=== PATIENT | male | born 1955 | race Caucasian/White ===

== ENCOUNTER → 2020-10-03 | Outpatient (CLI) | payer OTHER ==
[2020-10-03 11:14] LABS: HEMOGLOBIN 15.8 gm/dl (14.0-17.5); RED BLOOD COUNT 5.03 M/UL (4.20-5.50); WHITE BLOOD COUNT 8.1 K/UL (4.5-11.0)
[2020-10-05 17:17] LABS: CHOLESTEROL, TOTAL 116 mg/dL (100-199); HDL-C 38 mg/dL (>39); HDL-P (TOTAL) 29.8 umol/L (>=30.5); LARGE HDL-P 3.5 umol/L (>=4.8); LARGE VLDL-P 2.4 nmol/L (<=2.7); LDL SIZE 20.7 nm (>20.5); LDL SIZE 20.7 nm (>=20.8); LDL-C 62 mg/dL (0-99); LDL-P 806 nmol/L (<1000); LP-IR SCORE 53 (<=45); SMALL LDL-P 415 nmol/L (<=527); TRIGLYCERIDES 77 mg/dL (0-149); VLDL SIZE 46.6 nm (<=46.6)
== END ==
LOC: LAB 10:40
PROVIDERS: Emergency Medicine
DX: I10 Essential (primary) hypertension (principal); R35.1 Nocturia; I25.10 Atherosclerotic heart disease of native coronary artery without angina pectoris; E78.2 Mixed hyperlipidemia; Z12.5 Encounter for screening for malignant neoplasm of prostate
CPT/HCPCS: 36415; 80053; 80061; 83704; 84153; 84550; 85025

== ENCOUNTER → 2021-08-11 | Outpatient (CLI) | payer MEDICARE, OTHER ==
[2021-08-11 14:56] LABS: HEMOGLOBIN 14.8 gm/dl (14.0-17.5); RED BLOOD COUNT 4.95 M/UL (4.20-5.50); WHITE BLOOD COUNT 8.3 K/UL (4.5-11.0)
[2021-08-11 15:28] LABS: BUN/CREATININE RATIO 9 (0-10)
[2021-08-14 14:12] LABS: CHOLESTEROL, TOTAL 117 mg/dL (100-199); HDL SIZE 8.9 nm (>=9.2); HDL-C 38 mg/dL (>39); HDL-P (TOTAL) 24.9 umol/L (>=30.5); LARGE HDL-P 3.4 umol/L (>=4.8); LARGE VLDL-P 1.1 nmol/L (<=2.7); LDL SIZE 20.5 nm (>20.5); LDL SIZE 20.5 nm (>=20.8); LDL-C 62 mg/dL (0-99); LDL-P 819 nmol/L (<1000); LP-IR SCORE 39 (<=45); SMALL LDL-P 438 nmol/L (<=527); TRIGLYCERIDES 85 mg/dL (0-149); VLDL SIZE 41.8 nm (<=46.6)
== END ==
LOC: LAB 13:35
PROVIDERS: Emergency Medicine
DX: I25.10 Atherosclerotic heart disease of native coronary artery without angina pectoris (principal); I10 Essential (primary) hypertension; E78.2 Mixed hyperlipidemia
CPT/HCPCS: 36415; 80053; 80061; 83704; 84153; 84550; 85025

== ENCOUNTER → 2021-11-26 | Day surgery (SDC) | payer MEDICARE, OTHER ==
[~2021-11-26] VITALS: Ht 190.5 cm; Wt 100.2 kg
[~2021-11-26] MED LIST: AMLODIPINE BESYL5 MG PO; BACTROBAN OINT22 GM EXT; LOPRESSOR 50 MG50 MG PO; SIMVASTATIN20 MG PO; VAZALORE81 MG PO
== END | disposition home or self-care (01) ==
LOC: OR 06:11
PROVIDERS: Internal Medicine Gastroenterology
PROC: 0DBN8ZZ Excision of Sigmoid Colon, Via Natural or Artificial Opening Endoscopic (ICD-10-PCS; 2021-11-26)
PROC: 0DBK8ZZ Excision of Ascending Colon, Via Natural or Artificial Opening Endoscopic (ICD-10-PCS; principal; 2021-11-26 07:30)
DX: D12.2 Benign neoplasm of ascending colon (principal); K63.5 Polyp of colon; K57.30 Diverticulosis of large intestine without perforation or abscess without bleeding; K64.1 Second degree hemorrhoids; I10 Essential (primary) hypertension; E78.00 Pure hypercholesterolemia, unspecified; F17.210 Nicotine dependence, cigarettes, uncomplicated; E66.3 Overweight; Z68.27 Body mass index [BMI] 27.0-27.9, adult; Z79.82 Long term (current) use of aspirin; Z79.899 Other long term (current) drug therapy
CPT/HCPCS: J2704; J7040